=== PATIENT | male | born 1995 | race Two or more races ===

== ENCOUNTER → 2022-12-12 | Outpatient (CLI) | payer BC | END | disposition home or self-care (01) | LOC: XYW 07:57 | PROVIDERS: ATTEND Internal Medicine | DX: N26.1 Atrophy of kidney (terminal) (principal) | CPT/HCPCS: 93975 ==

== ENCOUNTER → 2022-12-20 | Outpatient (CLI) | payer BC | END | disposition home or self-care (01) | LOC: LAB 17:00 | PROVIDERS: ATTEND Urology | DX: N26.1 Atrophy of kidney (terminal) (principal) | CPT/HCPCS: 36415; 84132 ==

== ENCOUNTER → 2022-12-21 | Outpatient (CLI) | payer BC ==
[~2022-12-21] MED LIST: FUROSEMIDE 40 MG/4 ML VIAL IV ONE
== END | disposition home or self-care (01) ==
LOC: XYW 07:44
PROVIDERS: ATTEND Urology
DX: N26.1 Atrophy of kidney (terminal) (principal)
CPT/HCPCS: 78707; A9562

== ENCOUNTER → 2023-03-15 | Outpatient (CLI) | payer BC | END | disposition home or self-care (01) | LOC: LAB 10:37 | PROVIDERS: ATTEND Internal Medicine | DX: Z20.2 Contact with and (suspected) exposure to infections with a predominantly sexual mode of transmission (principal) | CPT/HCPCS: 86592 ==

== ENCOUNTER → 2023-06-06 | Outpatient (CLI) | payer BC ==
[2023-06-06 15:30] LABS: Alanine Aminotransferase 56 U/L (7-40); Alkaline Phosphatase 83 U/L (46-116); Anion Gap 8 (5-15); Aspartate Aminotransferase 29 U/L (13-40); BUN/Creatinine Ratio 7.6 (10.0-20.0); Blood Urea Nitrogen 8 mg/dL (9-23); Calcium 10.1 mg/dL (8.5-10.1); Carbon Dioxide 27 mmol/L (20-30); Chloride 103 mmol/L (98-107); Glucose 85 mg/dL (74-106); LDL Cholesterol 126 mg/dL (< 100); Potassium 4.5 mmol/L (3.5-5.1); Sodium 138 mmol/L (136-145); Triglycerides 193 mg/dL (< 150)
[2023-06-06 15:31] LABS: Bilirubin, Total 0.6 mg/dL (0.2-1.0); Cholesterol 178 mg/dL (< 200); HDL Cholesterol 33 mg/dL (40-59); Total Protein 8.1 g/dL (5.7-8.2)
[2023-06-06 15:46] LABS: Erythrocyte Sedimentation Rate 3 mm/hr (0-20)
[2023-06-06 16:27] LABS: Creatinine, Urine 131.03 mg/dL (30.0-125.0)
== END | disposition home or self-care (01) ==
LOC: LAB 13:26
PROVIDERS: ATTEND Internal Medicine
DX: Z20.2 Contact with and (suspected) exposure to infections with a predominantly sexual mode of transmission (principal); K76.0 Fatty (change of) liver, not elsewhere classified; R53.83 Other fatigue; R73.03 Prediabetes; A53.0 Latent syphilis, unspecified as early or late
CPT/HCPCS: 36415; 80053; 80061; 80074; 82043; 82570; 83036; 84403; 85652; 86038; 86141

== ENCOUNTER → 2023-07-18 | Outpatient (CLI) | payer BC ==
[2023-07-18 14:43] LABS: Albumin 4.7 g/dL (3.2-4.8); Bilirubin, Direct 0.1 mg/dL (<0.3); Bilirubin, Total 0.5 mg/dL (0.2-1.0); Total Protein 7.9 g/dL (5.7-8.2)
== END | disposition home or self-care (01) ==
LOC: LAB 13:54
PROVIDERS: ATTEND Internal Medicine
DX: K76.0 Fatty (change of) liver, not elsewhere classified (principal)
CPT/HCPCS: 36415; 80076

== ENCOUNTER → 2023-10-17 | Outpatient (CLI) | payer BC ==
[2023-10-17 14:13] LABS: Anion Gap 7 (5-15); Carbon Dioxide 27 mmol/L (20-30); Chloride 105 mmol/L (98-107); Potassium 4.1 mmol/L (3.5-5.1); Sodium 139 mmol/L (136-145)
[2023-10-17 14:14] LABS: Calcium 9.9 mg/dL (8.5-10.1)
[2023-10-17 14:19] LABS: BUN/Creatinine Ratio 8.7 (10.0-20.0); Blood Urea Nitrogen 11 mg/dL (9-23); Glucose 96 mg/dL (74-106)
[2023-10-17 17:10] LABS: Creatinine, Urine 178.95 mg/dL (30.0-125.0)
== END | disposition home or self-care (01) ==
LOC: LAB 13:37
PROVIDERS: ATTEND Internal Medicine
DX: R73.03 Prediabetes (principal)
CPT/HCPCS: 36415; 80048; 82043; 82570; 83036

== ENCOUNTER 2024-01-29 07:42 | Inpatient (IN) | payer BC ==
[2024-01-26 17:17] LABS: Urine Bacteria None Seen /hpf (None Seen)
[2024-01-26 17:27] LABS: Urine Blood Negative /uL (Negative); Urine Clarity Clear (Clear); Urine Color Yellow (Yellow); Urine Mucus FEW (None Seen); Urine Protein, UAD 1+ (Negative); Urine Specific Gravity 1.028 (1.001-1.035); Urine Urobilinogen Normal (Negative); Urine WBC 3 /hpf (0 - 3); Urine pH 5.5 (5.0-9.0)
[~2024-01-29] VITALS: Ht 190.5 cm; Wt 144.7 kg
[~2024-01-29 07:42] MED LIST changes: +AMLO1TAB22 PO; +BUPR-133 PO; -FUROSEMIDE 40 MG/4 ML VIAL IV ONE; +LOSA-534 PO
[2024-01-29] MEDS ORDERED: fentaNYL CITRATE 100 MCG/2 ML VL ONE (10:30)
[2024-01-29] MEDS ORDERED: MEPERIDINE HCL (25 MG/ML) 1ML VIAL ONE (10:30)
[2024-01-29] MEDS ORDERED: MIDAZOLAM HCL 2MG/2ML 2ml VIAL (1mg/ml) ONE (10:30)
[2024-01-29] MEDS: ceFAZolin 2 GM/D5W50ml 50 ML IV ONE (12:00)
[2024-01-29] MEDS: BUPIVACAINE 0.25% INJ 50ML VIAL ONE (13:03)
[2024-01-29] MEDS: LIDOCAINE W/ EPINEPHRINE 1% 20ML VIAL ONE (13:03)
[2024-01-29] MEDS ORDERED: ONDANSETRON HCL 4 MG/2 ML VIAL IV PRN (13:30)
[2024-01-29] MEDS: D5W/SOD CHL 0.45%/KCL 20MEQ 1,000 ML IV SCH (13:30)
[2024-01-29 13:36] VITALS: PULSE 85; RESP 11; O2SAT 100
[2024-01-29] MEDS ORDERED: ePHEDrine SULFATE 50 MG/ML AMP IV PRN (13:45)
[2024-01-29] MEDS ORDERED: HYDROmorphone HCL 2 MG/ML VL/or syr IV PRN (13:45)
[2024-01-29] MEDS ORDERED: MIDAZOLAM HCL 2MG/2ML 2ml VIAL (1mg/ml) IV PRN (13:45)
[2024-01-29] MEDS: KETOROLAC TROMETH 30 MG/ML 1ML VIAL IV ONE (13:45)
[2024-01-29] MEDS: ONDANSETRON HCL 4 MG/2 ML VIAL IV ONE (13:45)
[2024-01-29] MEDS ORDERED: MORPHINE SULFATE 4 MG/ML SYR/VIAL IV PRN (13:45)
[2024-01-29] MEDS ORDERED: PROPOFOL 10 MG/ML 20 ML IV ONE (15:03)
[2024-01-29 16:20] VITALS: BP 109/77; PULSE 64; RESP 18; TEMP 98.2; O2SAT 97
[2024-01-29 16:22] VITALS: BP 109/77; PULSE 64; RESP 18; TEMP 98.2; O2SAT 97
[2024-01-29] MEDS: HYDROcodone-ACET 5/325MG TAB PO PRN (17:20)
[2024-01-29] MEDS: HYDROmorphone HCL 2 MG/ML VL/or syr IV PRN (19:46)
[2024-01-29 21:11] VITALS: BP 106/73; PULSE 61; RESP 18; TEMP 98.7; O2SAT 91
[2024-01-29] MEDS: DOCUSATE SOD 100 MG CAP PO SCH (21:16)
[2024-01-29] MEDS: metroNIDAZOLE 500MG/100ML 100 ML IV SCH (21:20)
[2024-01-30 01:33] VITALS: BP 108/65; PULSE 51; RESP 18; TEMP 97.7; O2SAT 97
[2024-01-30 05:00] VITALS: BP 112/54; PULSE 49; RESP 18; TEMP 98.2; O2SAT 100
[2024-01-30 05:54] LABS: Basophils # (auto) 0 10 ^3/uL (0-0.2); Basophils % (auto) 0.2 % (0.0-2.0); Eosinophils # (auto) 0.3 10 ^3/uL (0-0.8); Eosinophils % (auto) 2.8 % (0.0-7.0); Hematocrit 46.5 % (41.0-53.0); Hemoglobin 15.5 g/dL (13.5-17.5); Lymphocytes # (auto) 3.8 10 ^3/uL (0.4-5.4); Lymphocytes % (auto) 37.4 % (10.0-50.0); Mean Corpuscular Hemoglobin 29.1 pg (28.0-32.0); Mean Corpuscular Hgb Conc. 33.3 g/dL (32.0-36.0); Mean Corpuscular Volume 87.4 fL (80.0-100.0); Monocytes # (auto) 0.8 10 ^3/uL (0-1.3); Monocytes % (auto) 8.1 % (0.0-12.0); Neutrophils # (auto) 5.2 10 ^3/uL (1.6-8.6); Neutrophils % (auto) 51.5 % (37.0-80.0); Nucleated Red Blood Cells % 0.2 %; Red Blood Cells 5.32 10^6/uL (4.5-5.90); Red Cell Distribution Width 14.2 % (11.8-14.3); White Blood Cell 10.1 10^3/uL (4.4-10.8)
[2024-01-30 06:09] LABS: Alanine Aminotransferase 49 U/L (7-40); Alkaline Phosphatase 54 U/L (46-116); Anion Gap 7 (5-15); Aspartate Aminotransferase 34 U/L (13-40); BUN/Creatinine Ratio 6.7 (10.0-20.0); Bilirubin, Total 0.5 mg/dL (0.2-1.0); Blood Urea Nitrogen 7 mg/dL (9-23); Calcium 9.4 mg/dL (8.7-10.4); Carbon Dioxide 26 mmol/L (20-30); Chloride 104 mmol/L (98-107); Glucose 87 mg/dL (74-106); Potassium 4.1 mmol/L (3.5-5.1); Sodium 137 mmol/L (136-145); Total Protein 6.7 g/dL (5.7-8.2)
[2024-01-30 08:38] VITALS: BP 119/72; PULSE 52; RESP 21; TEMP 98.5; O2SAT 98
[2024-01-30] MEDS: cefTRIAXone 2GM/50ML D5W 50 ML IV SCH (09:31)
[2024-01-30] MEDS ORDERED: AUG875T PO (09:58)
[2024-01-30] MEDS ORDERED: HYDR-4902 PO (09:58)
[2024-01-30] MEDS ORDERED: DOCU-94 PO (10:01)
[2024-01-30 12:38] VITALS: BP 121/69; PULSE 58; RESP 19; TEMP 97.8; O2SAT 98
== END 2024-01-30 14:15 | disposition home or self-care (01) | DRG 345 ==
LOC: SUR 07:42 → EEVIPCON 14:28 → OVERFLOW 14:28 → CENTRAL 16:03
PROVIDERS: ADMIT Internal Medicine; ATTEND Internal Medicine
PROC: 0D9P0ZZ Drainage of Rectum, Open Approach (ICD-10-PCS; principal; 2024-01-29 12:38)
DX: K61.2 Anorectal abscess (principal); L02.31 Cutaneous abscess of buttock; E66.01 Morbid (severe) obesity due to excess calories; F41.9 Anxiety disorder, unspecified; I10 Essential (primary) hypertension; Z68.39 Body mass index [BMI] 39.0-39.9, adult
CPT/HCPCS: 36415; 80053; 81001; 85025; 87070; 87075; 87077; 87186; 87205; G0378; J1885; J2250; J2405; J2704; J3490

== ENCOUNTER → 2024-08-28 | Outpatient (CLI) | payer BC ==
[~2024-08-28] MED LIST changes: +AUG875T PO; +DOCU-94 PO; +HYDR-4902 PO
== END | disposition home or self-care (01) ==
LOC: LAB 15:33
PROVIDERS: ATTEND Nurse Practitioner
DX: K61.1 Rectal abscess (principal)
CPT/HCPCS: 36415; 82565; 84520

== ENCOUNTER → 2024-09-10 | Outpatient (CLI) | payer BC ==
[2024-09-10 13:38] LABS: Alkaline Phosphatase 72 U/L (46-116); Anion Gap 7 (5-15); Aspartate Aminotransferase 21 U/L (13-40); BUN/Creatinine Ratio 9.3 (10.0-20.0); Bilirubin, Total 0.5 mg/dL (0.2-1.0); Blood Urea Nitrogen 10 mg/dL (9-23); Calcium 10.2 mg/dL (8.7-10.4); Carbon Dioxide 25 mmol/L (20-31); Potassium 4.8 mmol/L (3.5-5.1); Sodium 140 mmol/L (136-145); Total Protein 7.7 g/dL (5.7-8.2)
[2024-09-10 13:43] LABS: Alanine Aminotransferase 42 U/L (7-40); Albumin 4.8 g/dL (3.2-4.8); Chloride 108 mmol/L (98-107); Cholesterol 204 mg/dL (< 200); Glucose 124 mg/dL (74-106); HDL Cholesterol 35 mg/dL (40-59); LDL Cholesterol 151 mg/dL (< 100); Triglycerides 171 mg/dL (< 150)
== END | disposition home or self-care (01) ==
LOC: LAB 11:13
PROVIDERS: ATTEND Internal Medicine
DX: Z00.00 Encounter for general adult medical examination without abnormal findings (principal)
CPT/HCPCS: 36415; 80053; 80061; 83036

== ENCOUNTER → 2024-10-30 | Day surgery (SDC) | payer BC ==
[2024-10-28 15:15] LABS: Urine Bacteria None Seen /hpf (None Seen)
[2024-10-28 15:28] LABS: Basophils # (auto) 0.1 10 ^3/uL (0-0.2); Basophils % (auto) 0.6 % (0.0-2.0); Eosinophils # (auto) 0.2 10 ^3/uL (0-0.8); Eosinophils % (auto) 1.6 % (0.0-7.0); Hematocrit 49.2 % (41.0-53.0); Hemoglobin 16.2 g/dL (13.5-17.5); Lymphocytes # (auto) 2.3 10 ^3/uL (0.4-5.4); Lymphocytes % (auto) 20.6 % (10.0-50.0); Mean Corpuscular Hemoglobin 28.7 pg (28.0-32.0); Mean Corpuscular Hgb Conc. 32.9 g/dL (32.0-36.0); Mean Corpuscular Volume 87.3 fL (80.0-100.0); Monocytes # (auto) 0.9 10 ^3/uL (0-1.3); Monocytes % (auto) 7.9 % (0.0-12.0); Neutrophils # (auto) 7.7 10 ^3/uL (1.6-8.6); Neutrophils % (auto) 69.3 % (37.0-80.0); Nucleated Red Blood Cells % 0.3 %; Platelet Count (auto) 288 10^3/uL (140-450); Red Blood Cells 5.63 10^6/uL (4.5-5.90); Red Cell Distribution Width 14.9 % (11.8-14.3); White Blood Cell 11.1 10^3/uL (4.4-10.8)
[2024-10-28 15:37] LABS: INR 1.07 (0.9-1.15); Partial Thromboplastin Time 31.1 SEC (24.5-34.5); Prothrombin Time 11.3 sec (9.3-11.8)
[2024-10-28 16:30] LABS: Urine Blood Negative /uL (Negative); Urine Clarity Clear (Clear); Urine Color Yellow (Yellow); Urine Mucus FEW (None Seen); Urine Protein, UAD TRACE (Negative); Urine Specific Gravity 1.026 (1.001-1.035); Urine Squamous Epithelial Cell FEW /hpf (<5); Urine Urobilinogen Normal (Negative); Urine WBC 1 /HPF (0-3); Urine pH 5.5 (5.0-9.0)
[2024-10-28 17:07] LABS: Albumin 4.7 g/dL (3.2-4.8); Alkaline Phosphatase 65 U/L (46-116); Anion Gap 9 (5-15); Aspartate Aminotransferase 27 U/L (13-40); BUN/Creatinine Ratio 9.8 (10.0-20.0); Bilirubin, Total 0.5 mg/dL (0.2-1.0); Blood Urea Nitrogen 12 mg/dL (9-23); Carbon Dioxide 23 mmol/L (20-31); Potassium 4.3 mmol/L (3.5-5.1); Sodium 141 mmol/L (136-145); Total Protein 7.5 g/dL (5.7-8.2)
[2024-10-28 17:11] LABS: Alanine Aminotransferase 61 U/L (7-40); Chloride 109 mmol/L (98-107); Glucose 113 mg/dL (74-106); Uric Acid 9.6 mg/dL (3.7-9.2)
[2024-10-28 19:57] LABS: Protein, Urine 18.9 mg/dL (1-14)
[2024-10-28 20:00] LABS: Creatinine, Urine 244.34 mg/dL (30.0-125.0); Urine Protein/Creatinine Ratio 0.08
[~2024-10-30] VITALS: Ht 190.5 cm; Wt 145.1 kg
[~2024-10-30] MED LIST changes: +ACE3T PO; -AMLO1TAB22 PO; +AMLO1TAB23 PO; -AUG875T PO; +BUPIVACAINE 0.5% MPF INJ 30ML SDV IJ ONE; -DOCU-94 PO; +DexAMETHasone SOD PHOS 10MG/1ML VIAL INJ ONE; -HYDR-4902 PO; +HYDROmorphone HCL 2 MG/ML VL/or syr IV PRN; +HYDROmorphone HCL 2 MG/ML VL/or syr ONE; +KETOROLAC TROMETH 30 MG/ML 1ML VIAL IV ONE; +LIDOCAINE 1% INJ PF 5ML AMP ONE; +LIDOCAINE 1%-Mpf/Epinephrine 1:200,000 30ml VIAL ONE; +LISI-275 PO; -LOSA-534 PO; +MIDAZOLAM HCL 2MG/2ML 2ml VIAL (1mg/ml) ONE; +ONDANSETRON HCL 4 MG/2 ML VIAL IV ONE; +ONDANSETRON HCL 4 MG/2 ML VIAL ONE; +PROPOFOL 10 MG/ML 20 ML IV ONE; +ROCURONIUM 10MG/ML 10ML VIAL IV ONE; +SUCCINYLCHOLINE CHLORIDE 20 MG/ML 10ML VIAL IV ONE; +SUGAMMADEX 200mg/2ml Vial (100MG/ML) IV ONE; +ceFAZolin 2 GM/D5W50ml 50 ML IV ONE; +ePHEDrine SULFATE 50 MG/ML AMP ONE; +fentaNYL CITRATE 100 MCG/2 ML VL ONE; +hydrALAZINE HCL 20 MG/ML VL IV PRN
[2024-10-30 08:41] VITALS: PULSE 98; RESP 14; TEMP 97.8; O2SAT 98
--- NOTE | 2024-10-30 09:02 | DVHOP ---
DATE OF SURGERY: 10/30/2024 PREOPERATIVE DIAGNOSIS: Anal fistula. POSTOPERATIVE DIAGNOSIS: Anal fistula. SURGEON: Arley Cardoza MD ASSISTANT DIRECTOR OF PUBLIC WORKS: Ck Villasenor NP ANESTHESIA: General endotracheal, Dr. Duane Ayala. DESCRIPTION OF PROCEDURE: Under general endotracheal anesthesia with the patient in jackknife position, prone on the operating room table and skin prepped and draped and buttocks spread with tapes, anal examination was done initially. Digital and visual examination with a speculum revealed an external opening of an anal fistula. This was probed with probes, which revealed an internal opening in the crypt within approximately 2 cm distance. The external opening was then probed with an Angiocath and a hydrogen peroxide injection revealed multiple internal openings. The external opening was scraped with curettes and irrigated. The fistula appears to be a transphincteric fistula and I have not dared to do a surgical fistulotomy due to the multiple openings on the inside of the anal canal. The external opening was packed with iodoform gauze and 0.25% Marcaine was infiltrated. I explained to the patient preoperatively that if simple procedure is not satisfactory to heal his problem, he will be referred to anorectal surgeon if the fistula is a complicated fistula such as a horseshoe or transsphincteric fistula. The patient remained stable throughout the procedure, left the operating room following an accurate needle and sponge count. MD ALEA Mcgee/DERRICK TID: [id number] RECEIPT: [id number]
[2024-10-30 09:20] VITALS: BP 124/81; PULSE 87; RESP 15; O2SAT 96
== END | disposition home or self-care (01) ==
LOC: SUR 06:11
PROVIDERS: ATTEND Surgery
DX: K60.30 Anal fistula, unspecified (principal); I10 Essential (primary) hypertension; E21.3 Hyperparathyroidism, unspecified; F41.8 Other specified anxiety disorders; E66.9 Obesity, unspecified; Z68.41 Body mass index [BMI] 40.0-44.9, adult; Z79.899 Other long term (current) drug therapy; Z98.890 Other specified postprocedural states; Z83.3 Family history of diabetes mellitus
CPT/HCPCS: 36415; 46280; 80053; 81001; 82306; 82570; 83970; 84156; 84550; 85025; 85610; 85730; 86850; 86900; 86901; J0330; J0690; J1100; J1171; J2004; J2250; J2405; J2704; J3010; J3490

== ENCOUNTER 2025-01-14 10:19 | Outpatient (CLI) | payer BC ==
[~2025-01-14 10:19] MED LIST changes: -BUPIVACAINE 0.5% MPF INJ 30ML SDV IJ ONE; -DexAMETHasone SOD PHOS 10MG/1ML VIAL INJ ONE; -HYDROmorphone HCL 2 MG/ML VL/or syr IV PRN; -HYDROmorphone HCL 2 MG/ML VL/or syr ONE; -KETOROLAC TROMETH 30 MG/ML 1ML VIAL IV ONE; -LIDOCAINE 1% INJ PF 5ML AMP ONE; -LIDOCAINE 1%-Mpf/Epinephrine 1:200,000 30ml VIAL ONE; -MIDAZOLAM HCL 2MG/2ML 2ml VIAL (1mg/ml) ONE; -ONDANSETRON HCL 4 MG/2 ML VIAL IV ONE; -ONDANSETRON HCL 4 MG/2 ML VIAL ONE; -PROPOFOL 10 MG/ML 20 ML IV ONE; -ROCURONIUM 10MG/ML 10ML VIAL IV ONE; -SUCCINYLCHOLINE CHLORIDE 20 MG/ML 10ML VIAL IV ONE; -SUGAMMADEX 200mg/2ml Vial (100MG/ML) IV ONE; -ceFAZolin 2 GM/D5W50ml 50 ML IV ONE; -ePHEDrine SULFATE 50 MG/ML AMP ONE; -fentaNYL CITRATE 100 MCG/2 ML VL ONE; -hydrALAZINE HCL 20 MG/ML VL IV PRN
[2025-01-14 12:32] LABS: Chloride 105.0 mmol/L (98-107); Potassium 4.6 mmol/L (3.5-5.1); Sodium 141.0 mmol/L (136-145)
[2025-01-14 12:33] LABS: Anion Gap 9.0 (5-15); Calcium 10.2 mg/dL (8.7-10.4); Carbon Dioxide 27.0 mmol/L (20-31)
[2025-01-14 12:39] LABS: BUN/Creatinine Ratio 8.4 (10.0-20.0); Blood Urea Nitrogen 9.0 mg/dL (9-23); Triglycerides 113.0 mg/dL (< 150)
[2025-01-14 12:40] LABS: Albumin 4.7 g/dL (3.2-4.8); Cholesterol 184.0 mg/dL (< 200); Glucose 120.0 mg/dL (74-106)
[2025-01-14 12:41] LABS: HDL Cholesterol 31.0 mg/dL (40-59)
[2025-01-14 12:47] LABS: Microalb/Creat Ratio, Urine 25.0
== END 2025-01-14 17:00 | disposition home or self-care (01) ==
LOC: LAB 10:19
PROVIDERS: ATTEND Internal Medicine
DX: E78.5 Hyperlipidemia, unspecified (principal); R73.03 Prediabetes
CPT/HCPCS: 36415; 80061; 80069; 82043; 82570; 83036

== ENCOUNTER → 2025-03-07 | Outpatient (CLI) | payer BC | END | disposition home or self-care (01) | LOC: LAB 12:39 | PROVIDERS: ATTEND Student in an Organized Health Care Education/Training Program | DX: Z01.812 Encounter for preprocedural laboratory examination (principal); L91.0 Hypertrophic scar ==

== ENCOUNTER 2025-06-16 14:59 | Outpatient (CLI) | payer BC ==
[2025-06-16 15:34] LABS: Cholesterol 187 mg/dL (< 200)
[2025-06-16 15:35] LABS: HDL Cholesterol 39 mg/dL (40-59); Triglycerides 151 mg/dL (< 150)
== END 2025-06-16 17:00 | disposition home or self-care (01) ==
LOC: LAB 14:59
PROVIDERS: ATTEND Internal Medicine
DX: E78.5 Hyperlipidemia, unspecified (principal); E66.9 Obesity, unspecified; R73.03 Prediabetes; Z79.899 Other long term (current) drug therapy
CPT/HCPCS: 36415; 80061; 82306; 83036; 84443